=== PATIENT | male | born 1990 | race Caucasian/White ===

== ENCOUNTER → 2020-09-03 | Outpatient (CLI) | payer OTHER ==
[~2020-09-03] MED LIST: ADVAIR 250-501 EACH; DAYTRANA1 EAC1
== END ==
LOC: LAB 14:34
PROVIDERS: ATTEND Nurse Practitioner
DX: Z20.828 Contact with and (suspected) exposure to other viral communicable diseases (principal)

== ENCOUNTER → 2020-10-18 | Outpatient (CLI) | payer OTHER | LOC: LAB 14:26 | PROVIDERS: ATTEND Nurse Practitioner | DX: J02.9 Acute pharyngitis, unspecified (principal) ==